=== PATIENT | female | born 1960 | race Two or more races ===

== ENCOUNTER → 2017-10-05 | Outpatient (CLI) | payer MEDICARE ==
[~2017-10-05] MED LIST: ASPI-191 PO; CEFD300C37 PO; CHOL100011 PO; CHOL10003 PO; FAMO20TA7 PO; FENO120T5 PO; FURO40SO5 PO; GEMF600T3 PO; HYDR25TA6 PO; INSU100I13 SQ-INSULIN; LISI40TA PO; MELO15TA24 PO; METF10002 PO; METF500T4 PO; METR500T PO; POTA99TA24 PO; RANI-276 PO; SAXA5TAB PO; TRAM50TA2 PO
== END | disposition home or self-care (01) ==
LOC: CFH 11:55
PROVIDERS: ATTEND Family Medicine
DX: Z12.31 Encounter for screening mammogram for malignant neoplasm of breast (principal)
CPT/HCPCS: 77067

== ENCOUNTER → 2017-10-26 | Outpatient (CLI) | payer MEDICARE | END | disposition home or self-care (01) | LOC: CFH 13:59 | PROVIDERS: ATTEND Physician Assistant Surgical | DX: N85.2 Hypertrophy of uterus (principal); D17.79 Benign lipomatous neoplasm of other sites; Z90.49 Acquired absence of other specified parts of digestive tract | CPT/HCPCS: 74176 ==

== ENCOUNTER 2018-07-19 18:40 | Inpatient (IN) | payer MEDICARE ==
[~2018-07-19] VITALS: Ht 157.5 cm; Wt 61.4 kg
[2018-07-19 19:47] VITALS: BP 122/71
[2018-07-19 19:55] VITALS: BP 122/71
[2018-07-19] MEDS ORDERED: PLEASE ENTER HEIGHT AND WEIGHT MC SCH (20:00)
[2018-07-19 20:42] LABS: MEAN CORPUSCULAR HEMOGLOBIN 29.6 pg (27.0-34.8); MEAN CORPUSCULAR HGB CONC 34.4 g/dL (32.4-35.8); MEAN CORPUSCULAR VOLUME 86.1 fL (80-100); MEAN PLATELET VOLUME 8.3 fL (7.4-10.4); PLATELET COUNT 123 x10^3/uL (130-400); RED BLOOD COUNT 2.87 x10^6/uL (3.82-5.3); RED CELL DISTRIBUTION WIDTH 15.2 % (9.6-15.2)
[2018-07-19 20:54] LABS: ALANINE AMINOTRANSFERASE 19 U/L (12-78); ALBUMIN 3.2 g/dL (3.4-5.0); ANION GAP 13 mmol/L (5-15); CALCIUM 8.4 mg/dL (8.5-10.1); CHLORIDE 103 mmol/L (98-107); CREATININE 1.84 mg/dL (0.55-1.02); MD YES
[2018-07-19 20:56] LABS: ALKALINE PHOSPHATASE 71 U/L (45-117); BILIRUBIN,TOTAL 0.9 mg/dL (0.2-1.0); TOTAL PROTEIN 6.2 g/dL (6.4-8.2)
[2018-07-19] MEDS ORDERED: SODIUM CHLORIDE 0.45% 1,000 ML IV SCH (21:00)
[2018-07-19 21:08] LABS: BAND#(MANUAL) 0.04 x10^3/uL; BANDS%(MANUAL) 2 % (0-7); BASOS#(MANUAL) 0.02 x10^3/uL (0-0.1); BASOS% (MANUAL) 1 % (0-1); EOS#(MANUAL) 0.11 x10^3/uL (0.0-0.4); EOS% (MANUAL) 5 % (1-7); LYMPH#(MANUAL) 0.86 x10^3/uL (1-3.4); LYMPHS% (MANUAL) 41 % (22-44); MONOS#(MANUAL) 0.19 x10^3/uL (0.3-2.7); MONOS% (MANUAL) 9 % (2-9); REACTIVE LYMPHS # (MANUAL) 0.02 x10^3/uL (0-0); REACTIVE LYMPHS % (MANUAL) 1 % (0-0); SEG#(MANUAL) 0.86 x10^3/uL (1.8-6.8); SEGS% (MANUAL) 41 % (42-75)
[2018-07-19 21:13] LABS: ANISOCYTOSIS 1+; OVALOCYTES 1+
[2018-07-19 21:14] LABS: POLYCHROMASIA 1+
[2018-07-19 21:16] LABS: <PLT MORPHOLOGY> NORMAL PLT MORPH
[2018-07-19 21:17] LABS: <PLATELET ESTIMATE> ADEQUATE
[2018-07-19] MEDS: OXYcodone/APAP 5/325MG TABLET PO PRN (21:59)
[2018-07-19] MEDS: MIRTAZAPINE 15 MG TABLET PO SCH (22:55)
[2018-07-19] MEDS: OXYBUTYNIN CHLORIDE 5 MG TABLET PO SCH (22:55)
[2018-07-19] MEDS: CEFEPIME 1 GM in DEXTROSE 5% 50 ML IV SCH (22:55)
[2018-07-19] MEDS: ATORVASTATIN 40 MG TABLET PO SCH (22:55)
[2018-07-19] MEDS ORDERED: ONDANSETRON 4 MG TABLET PO PRN (23:00)
[2018-07-19 23:39] LABS: CULTURE INDICATED? YES; MICROSCOPIC INDICATED
[2018-07-19] MEDS: METRONIDAZOLE PMX 500MG/100ML 100 ML IV SCH (23:52)
[2018-07-20 01:04] VITALS: BP 107/66
[2018-07-20] MEDS: METRONIDAZOLE PMX 500MG/100ML 100 ML IV SCH ×3 (05:42→20:08)
[2018-07-20 07:32] VITALS: BP 109/72
[2018-07-20] MEDS: INSULIN GLARGINE 100 UNITS/ML, PEN SQ-INSULIN SCH ×2 (09:00→12:47)
[2018-07-20] MEDS: ASPIRIN 81 MG TABLET EC PO SCH (09:00)
[2018-07-20] MEDS: GLIPizide ER 2.5 MG TABLET PO SCH (10:43)
[2018-07-20] MEDS: ASCORBIC ACID 500 MG TABLET PO SCH (10:43)
[2018-07-20] MEDS: ALLOPURINOL 100 MG TABLET PO SCH (10:43)
[2018-07-20] MEDS: CHOLECALCIFEROL 1,000 UNIT TABLET PO SCH (10:43)
[2018-07-20] MEDS: TBO-FILGRASTIM 300 MCG/0.5 ML SQ SCH (10:44)
[2018-07-20] MEDS: OXYBUTYNIN CHLORIDE 5 MG TABLET PO SCH ×2 (10:44→20:08)
[2018-07-20] MEDS: FERROUS SULFATE 325 MG TABLET PO SCH (10:44)
[2018-07-20] MEDS: ONDANSETRON 2MG/ML, 2ML IVPush PRN (13:00)
[2018-07-20] MEDS: OXYcodone/APAP 5/325MG TABLET PO PRN ×2 (13:00→20:12)
[2018-07-20] MEDS: DIPHENHYDRAMINE 50 MG/ML, 1ML IVPush PRN (13:00)
[2018-07-20 13:39] VITALS: BP 123/73
[2018-07-20] MEDS: ACETAMINOPHEN 325 MG TABLET PO PRN (14:16)
[2018-07-20] MEDS: POTASSIUM CHLORIDE 20 MEQ in SODIUM CHLORIDE 0.45% 1,000 ML IV SCH (14:16)
[2018-07-20 19:28] VITALS: BP 113/69
[2018-07-20] MEDS: ATORVASTATIN 40 MG TABLET PO SCH (20:08)
[2018-07-20] MEDS: MIRTAZAPINE 15 MG TABLET PO SCH (20:08)
[2018-07-20] MEDS: CEFEPIME 1 GM in DEXTROSE 5% 50 ML IV SCH (23:09)
[2018-07-21 01:46] VITALS: BP 106/62
[2018-07-21] MEDS: METRONIDAZOLE PMX 500MG/100ML 100 ML IV SCH ×4 (02:15→23:14)
[2018-07-21] MEDS: POTASSIUM CHLORIDE 20 MEQ in SODIUM CHLORIDE 0.45% 1,000 ML IV SCH ×3 (02:28→16:41)
[2018-07-21] MEDS: DIPHENHYDRAMINE 50 MG/ML, 1ML IVPush PRN ×2 (06:16→23:32)
[2018-07-21 07:36] VITALS: BP 115/70
[2018-07-21] MEDS: ASPIRIN 81 MG TABLET EC PO SCH (08:24)
[2018-07-21] MEDS: ALLOPURINOL 100 MG TABLET PO SCH (08:33)
[2018-07-21] MEDS: CHOLECALCIFEROL 1,000 UNIT TABLET PO SCH (08:33)
[2018-07-21] MEDS: OXYBUTYNIN CHLORIDE 5 MG TABLET PO SCH ×2 (08:33→20:31)
[2018-07-21] MEDS: OXYcodone/APAP 5/325MG TABLET PO PRN ×2 (08:33→16:41)
[2018-07-21] MEDS: FERROUS SULFATE 325 MG TABLET PO SCH (08:33)
[2018-07-21] MEDS: GLIPizide ER 2.5 MG TABLET PO SCH (08:33)
[2018-07-21] MEDS: ASCORBIC ACID 500 MG TABLET PO SCH (08:34)
[2018-07-21] MEDS: ONDANSETRON 2MG/ML, 2ML IVPush PRN (08:46)
[2018-07-21] MEDS: INSULIN GLARGINE 100 UNITS/ML, PEN SQ-INSULIN SCH (08:54)
[2018-07-21 09:43] LABS: BASOPHILS # (AUTO) 0.03 x10^3/uL (0-0.1); BASOPHILS % (AUTO) 0 % (0-1); EOSINOPHILS # (AUTO) 0.24 x10^3/uL (0-0.4); EOSINOPHILS % (AUTO) 2 % (1-7); LYMPHOCYTES # (AUTO) 0.98 x10^3/uL (1-3.4); LYMPHOCYTES % (AUTO) 10 % (22-44); MD NO; MEAN CORPUSCULAR HEMOGLOBIN 28.6 pg (27.0-34.8); MEAN CORPUSCULAR HGB CONC 32.8 g/dL (32.4-35.8); MEAN CORPUSCULAR VOLUME 87.3 fL (80-100); MEAN PLATELET VOLUME 8.3 fL (7.4-10.4); MONOCYTES # (AUTO) 0.33 x10^3/uL (0.2-0.8); MONOCYTES % (AUTO) 3 % (2-9); NEUTROPHILS % (AUTO) 85 % (42-75); PLATELET COUNT 113 x10^3/uL (130-400); RED BLOOD COUNT 2.72 x10^6/uL (3.82-5.3); RED CELL DISTRIBUTION WIDTH 15.2 % (9.6-15.2)
[2018-07-21 09:59] LABS: ALBUMIN 2.8 g/dL (3.4-5.0); ANION GAP 7 mmol/L (5-15); CALCIUM 8.2 mg/dL (8.5-10.1); CHLORIDE 109 mmol/L (98-107)
[2018-07-21] MEDS: TBO-FILGRASTIM 300 MCG/0.5 ML SQ SCH (09:59)
[2018-07-21 10:03] LABS: ALANINE AMINOTRANSFERASE 14 U/L (12-78); ALKALINE PHOSPHATASE 63 U/L (45-117); BILIRUBIN,TOTAL 0.8 mg/dL (0.2-1.0); CREATININE 1.29 mg/dL (0.55-1.02); TOTAL PROTEIN 5.3 g/dL (6.4-8.2)
[2018-07-21 12:43] VITALS: BP 98/58
[2018-07-21 18:47] VITALS: BP 95/56
[2018-07-21] MEDS: MIRTAZAPINE 15 MG TABLET PO SCH (20:31)
[2018-07-21] MEDS: ATORVASTATIN 40 MG TABLET PO SCH (20:31)
[2018-07-22] MEDS: CEFEPIME 1 GM in DEXTROSE 5% 50 ML IV SCH (00:37)
[2018-07-22] MEDS: POTASSIUM CHLORIDE 20 MEQ in SODIUM CHLORIDE 0.45% 1,000 ML IV SCH ×2 (02:11→09:33)
[2018-07-22 03:01] VITALS: BP 111/57
[2018-07-22] MEDS: METRONIDAZOLE PMX 500MG/100ML 100 ML IV SCH (05:04)
[2018-07-22 07:43] VITALS: BP 99/58
[2018-07-22] MEDS: GLIPizide ER 2.5 MG TABLET PO SCH (08:14)
[2018-07-22] MEDS: OXYBUTYNIN CHLORIDE 5 MG TABLET PO SCH ×2 (08:14→19:49)
[2018-07-22] MEDS: ASCORBIC ACID 500 MG TABLET PO SCH (08:14)
[2018-07-22] MEDS: ALLOPURINOL 100 MG TABLET PO SCH (08:14)
[2018-07-22] MEDS: CHOLECALCIFEROL 1,000 UNIT TABLET PO SCH (08:15)
[2018-07-22] MEDS: ASPIRIN 81 MG TABLET EC PO SCH (08:15)
[2018-07-22] MEDS: FERROUS SULFATE 325 MG TABLET PO SCH (08:15)
[2018-07-22] MEDS: INSULIN GLARGINE 100 UNITS/ML, PEN SQ-INSULIN SCH (09:00)
[2018-07-22 10:13] LABS: MEAN CORPUSCULAR HEMOGLOBIN 29.3 pg (27.0-34.8); MEAN CORPUSCULAR HGB CONC 33.8 g/dL (32.4-35.8); MEAN CORPUSCULAR VOLUME 86.9 fL (80-100); MEAN PLATELET VOLUME 8.4 fL (7.4-10.4); PLATELET COUNT 114 x10^3/uL (130-400); RED BLOOD COUNT 2.61 x10^6/uL (3.82-5.3); RED CELL DISTRIBUTION WIDTH 15.3 % (9.6-15.2)
[2018-07-22 10:21] LABS: BASOPHILS # (AUTO) 0.03 x10^3/uL (0-0.1); BASOPHILS % (AUTO) 0 % (0-1); EOSINOPHILS # (AUTO) 0.48 x10^3/uL (0-0.4); EOSINOPHILS % (AUTO) 6 % (1-7); LYMPHOCYTES # (AUTO) 1.19 x10^3/uL (1-3.4); LYMPHOCYTES % (AUTO) 14 % (22-44); MD SCAN; MONOCYTES # (AUTO) 0.26 x10^3/uL (0.2-0.8); MONOCYTES % (AUTO) 3 % (2-9); NEUTROPHILS # (AUTO) 6.59 x10^3/uL (1.8-6.8); NEUTROPHILS % (AUTO) 77 % (42-75)
[2018-07-22 10:39] LABS: ANION GAP 10 mmol/L (5-15); CHLORIDE 111 mmol/L (98-107)
[2018-07-22 10:44] LABS: CALCIUM 7.9 mg/dL (8.5-10.1); CREATININE 0.96 mg/dL (0.55-1.02)
[2018-07-22] MEDS: ONDANSETRON 2MG/ML, 2ML IVPush PRN (11:40)
[2018-07-22 14:04] VITALS: BP 100/61
[2018-07-22] MEDS: ATORVASTATIN 40 MG TABLET PO SCH (19:48)
[2018-07-22] MEDS: CIPROFLOXACIN/PMX 400MG/200ML 200 ML IV SCH (19:49)
[2018-07-22] MEDS: MIRTAZAPINE 15 MG TABLET PO SCH (19:49)
[2018-07-22 20:00] VITALS: BP 102/63
[2018-07-22] MEDS: ACETAMINOPHEN 325 MG TABLET PO PRN (21:16)
[2018-07-23 00:57] VITALS: BP 105/59
[2018-07-23] MEDS: POTASSIUM CHLORIDE 20 MEQ in SODIUM CHLORIDE 0.45% 1,000 ML IV SCH ×2 (03:00→05:45)
[2018-07-23 05:24] LABS: MEAN CORPUSCULAR HEMOGLOBIN 29.7 pg (27.0-34.8); MEAN CORPUSCULAR VOLUME 87.3 fL (80-100); MEAN PLATELET VOLUME 7.9 fL (7.4-10.4); PLATELET COUNT 110 x10^3/uL (130-400); RED BLOOD COUNT 2.37 x10^6/uL (3.82-5.3)
[2018-07-23 05:28] LABS: CHLORIDE 115 mmol/L (98-107)
[2018-07-23 05:45] LABS: ANION GAP 8 mmol/L (5-15); CALCIUM 7.6 mg/dL (8.5-10.1); CREATININE 0.79 mg/dL (0.55-1.02)
[2018-07-23 05:58] LABS: BASOPHILS # (AUTO) 0.02 x10^3/uL (0-0.1); BASOPHILS % (AUTO) 0 % (0-1); EOSINOPHILS % (AUTO) 7 % (1-7); LYMPHOCYTES # (AUTO) 1.35 x10^3/uL (1-3.4); LYMPHOCYTES % (AUTO) 23 % (22-44); MD SCAN; MONOCYTES # (AUTO) 0.32 x10^3/uL (0.2-0.8); MONOCYTES % (AUTO) 6 % (2-9); NEUTROPHILS # (AUTO) 3.73 x10^3/uL (1.8-6.8); NEUTROPHILS % (AUTO) 64 % (42-75)
[2018-07-23] MEDS: FERROUS SULFATE 325 MG TABLET PO SCH (07:57)
[2018-07-23] MEDS: ASCORBIC ACID 500 MG TABLET PO SCH (07:57)
[2018-07-23] MEDS: OXYBUTYNIN CHLORIDE 5 MG TABLET PO SCH (07:57)
[2018-07-23] MEDS: ALLOPURINOL 100 MG TABLET PO SCH (07:57)
[2018-07-23] MEDS: GLIPizide ER 2.5 MG TABLET PO SCH (07:57)
[2018-07-23] MEDS: ASPIRIN 81 MG TABLET EC PO SCH (07:57)
[2018-07-23] MEDS: INSULIN GLARGINE 100 UNITS/ML, PEN SQ-INSULIN SCH (07:58)
[2018-07-23] MEDS: CHOLECALCIFEROL 1,000 UNIT TABLET PO SCH (07:58)
[2018-07-23] MEDS: CIPROFLOXACIN/PMX 400MG/200ML 200 ML IV SCH (08:02)
[2018-07-23 08:29] VITALS: BP 108/66
[2018-07-23] MEDS ORDERED: CIPR250T27 PO (10:32)
[2018-07-23] MEDS: ONDANSETRON 2MG/ML, 2ML IVPush PRN (10:42)
[2018-07-23 13:00] VITALS: BP 109/66
== END 2018-07-23 14:13 | disposition home or self-care (01) | DRG 871 ==
LOC: INTOOBSV 19:02 → OBSVTOIN 19:02 → 3NW 19:02
PROVIDERS: ADMIT Specialist; ATTEND Specialist
DX: A41.50 Gram-negative sepsis, unspecified (principal); E43 Unspecified severe protein-calorie malnutrition; N13.6 Pyonephrosis; C54.1 Malignant neoplasm of endometrium; D64.9 Anemia, unspecified; D70.3 Neutropenia due to infection; D64.81 Anemia due to antineoplastic chemotherapy; D75.89 Other specified diseases of blood and blood-forming organs; E11.22 Type 2 diabetes mellitus with diabetic chronic kidney disease; E11.649 Type 2 diabetes mellitus with hypoglycemia without coma; E78.5 Hyperlipidemia, unspecified; I12.9 Hypertensive chronic kidney disease with stage 1 through stage 4 chronic kidney disease, or unspecified chronic kidney disease; K21.9 Gastro-esophageal reflux disease without esophagitis; N18.9 Chronic kidney disease, unspecified; N85.2 Hypertrophy of uterus; T45.1X5A Adverse effect of antineoplastic and immunosuppressive drugs, initial encounter; Y92.89 Other specified places as the place of occurrence of the external cause; M19.90 Unspecified osteoarthritis, unspecified site; Z88.8 Allergy status to other drugs, medicaments and biological substances; Z82.49 Family history of ischemic heart disease and other diseases of the circulatory system; Z83.3 Family history of diabetes mellitus; Z68.24 Body mass index [BMI] 24.0-24.9, adult
CPT/HCPCS: 36415; 71045; 80048; 80053; 81001; 82962; 85025; 87040; 87077; 87086; 87186; G0378; J0692; J0744; J2405; J3480; J1200; J1447

== ENCOUNTER → 2018-07-19 | Day surgery (SDC) | payer MEDICARE ==
[~2018-07-19] VITALS: Ht 157.5 cm; Wt 59.3 kg
[~2018-07-19] MED LIST changes: +ALLO100T30 PO; +ATOR40TA78 PO; +CHOL2000 PO; +DEXAMETHASONE PO; +FERR325T5 PO; +FURO20TA3 PO; -GEMF600T3 PO; +GEMF600T4 PO; +GLIP2.5T3 PO; +GLIP5TAB10 PO; +INSU100V8 SQ; -METF10002 PO; +METF10007 PO; +METF500T17 PO; -METF500T4 PO; +MIRT15TA4 PO; +ONDA4TAB7 PO; +OXYB5TAB7 PO; +OXYC1TAB7 PO; +POTA10CA PO; -RANI-276 PO; +RANI-448 PO; +RANI300T PO; +vitamin c
[2018-07-19 12:15] VITALS: BP 111/71
== END | disposition home or self-care (01) ==
LOC: OUT 11:18 → EDSTATUS 13:00
PROVIDERS: ATTEND Urology
DX: Z02.9 Encounter for administrative examinations, unspecified (principal)

== ENCOUNTER 2018-08-24 06:37 | Day surgery (SDC) | payer MEDICARE ==
[~2018-08-24] VITALS: Ht 157.5 cm; Wt 57.4 kg
[~2018-08-24 06:37] MED LIST changes: +CIPR250T27 PO; -GEMF600T4 PO; +GEMF600T8 PO
[2018-08-24] MEDS ORDERED: SODIUM CHLORIDE 0.9% 1,000 ML IV SCH (07:20)
[2018-08-24 07:55] VITALS: BP 122/82
[2018-08-24] MEDS ORDERED: FENTANYL PF 100 MCG/2ML ONE (07:59)
[2018-08-24] MEDS ORDERED: MIDAZOLAM 1 MG/ML, 5ML ONE (07:59)
[2018-08-24] MEDS ORDERED: LIDOCAINE-MPF 1%, 5ML ONE (08:28)
== END 2018-08-24 10:45 | disposition home or self-care (01) ==
LOC: OUT 06:37
PROVIDERS: ATTEND Urology
DX: N13.30 Unspecified hydronephrosis (principal); C54.1 Malignant neoplasm of endometrium; I12.9 Hypertensive chronic kidney disease with stage 1 through stage 4 chronic kidney disease, or unspecified chronic kidney disease; E11.22 Type 2 diabetes mellitus with diabetic chronic kidney disease; N18.9 Chronic kidney disease, unspecified; Z79.82 Long term (current) use of aspirin; Z87.891 Personal history of nicotine dependence; Z98.890 Other specified postprocedural states; Z79.84 Long term (current) use of oral hypoglycemic drugs
CPT/HCPCS: 50693; 99156; 99157; C2625; J2250; J3010; J7030; 50695

== ENCOUNTER 2018-11-03 10:29 | Outpatient (CLI) | payer MEDICARE | END 2018-11-03 23:59 | disposition home or self-care (01) | LOC: WOUND 10:29 | PROVIDERS: ATTEND Family Medicine | DX: Z43.3 Encounter for attention to colostomy (principal) | CPT/HCPCS: G0463 ==

== ENCOUNTER → 2018-11-22 | Outpatient (CLI) | payer MEDICARE ==
[~2018-11-22] MED LIST changes: +OMNIPAQUE 350 MG/ML, 100ML BOTTLE ONE
== END | disposition home or self-care (01) ==
LOC: CFH 13:13
PROVIDERS: ATTEND Specialist
DX: Z51.11 Encounter for antineoplastic chemotherapy (principal); C54.1 Malignant neoplasm of endometrium; C78.89 Secondary malignant neoplasm of other digestive organs; J98.4 Other disorders of lung; N13.39 Other hydronephrosis
CPT/HCPCS: 71260; 74177; 82565; Q9967

== ENCOUNTER 2018-11-29 10:23 | Outpatient (CLI) | payer MEDICARE ==
[~2018-11-29 10:23] MED LIST changes: -OMNIPAQUE 350 MG/ML, 100ML BOTTLE ONE
[2018-12-13] MEDS ORDERED: PROC10TA2 PO (15:20)
[2018-12-13] MEDS ORDERED: [UNRECOGNIZED DRUG - OTHER] (15:20)
[2018-12-13] MEDS ORDERED: MAGN400T7 PO (15:20)
[2018-12-13] MEDS ORDERED: OXYC-306 PO (15:20)
== END 2018-11-29 23:59 | disposition home or self-care (01) ==
LOC: WOUND 10:23
PROVIDERS: ATTEND Internal Medicine
DX: Z93.2 Ileostomy status (principal); I12.9 Hypertensive chronic kidney disease with stage 1 through stage 4 chronic kidney disease, or unspecified chronic kidney disease; E11.22 Type 2 diabetes mellitus with diabetic chronic kidney disease; N18.9 Chronic kidney disease, unspecified; G89.29 Other chronic pain; E78.00 Pure hypercholesterolemia, unspecified; E78.5 Hyperlipidemia, unspecified; M19.90 Unspecified osteoarthritis, unspecified site; K21.9 Gastro-esophageal reflux disease without esophagitis; Z87.891 Personal history of nicotine dependence; Z96.653 Presence of artificial knee joint, bilateral; Z79.82 Long term (current) use of aspirin; Z79.4 Long term (current) use of insulin; Z79.84 Long term (current) use of oral hypoglycemic drugs
CPT/HCPCS: G0463

== ENCOUNTER 2018-12-13 15:35 | Inpatient (IN) | payer MEDICARE ==
[~2018-12-13] VITALS: Ht 157.5 cm; Wt 72.9 kg
[2018-12-20] MEDS ORDERED: LACTATED RINGERS 1,000 ML IV SCH (06:12)
[2018-12-20 06:18] VITALS: BP 114/73
[2018-12-20] MEDS ORDERED: GABAPENTIN 300 MG CAPSULE PO ONE (06:30)
[2018-12-20] MEDS ORDERED: SCOPOLAMINE PATCH, 1.5MG PATCH.TD72 TD ONE (06:30)
[2018-12-20] MEDS ORDERED: OxyconTIN ER 20 MG TAB.ER PO ONE (06:30)
[2018-12-20] MEDS ORDERED: ACETAMINOPHEN 500 MG TABLET PO ONE (06:30)
[2018-12-20] MEDS ORDERED: FENTANYL PF 250 MCG/5ML ONE (07:31)
[2018-12-20] MEDS ORDERED: MIDAZOLAM 1 MG/ML, 2ML ONE (07:31)
[2018-12-20] MEDS ORDERED: ALBUMIN HUMAN 5% 500 ML ONE ×2 (07:37→09:38)
[2018-12-20] MEDS ORDERED: SILVER SULF. CRM 1% , 25GM ONE (09:10)
[2018-12-20] MEDS ORDERED: PROMETHAZINE 25 MG/ML, 1ML IV PRN (09:30)
[2018-12-20] MEDS ORDERED: METOPROLOL 1 MG/ML, 5ML IV PRN (09:30)
[2018-12-20] MEDS ORDERED: MIDAZOLAM 1 MG/ML, 2ML IV PRN (09:30)
[2018-12-20] MEDS ORDERED: ONDANSETRON 2MG/ML, 2ML IV PRN ×2 (09:30→16:00)
[2018-12-20] MEDS ORDERED: ALBUTEROL/IPRATROPIUM 2.5MG/0.5MG, 3 ML NPPB PRN (09:30)
[2018-12-20] MEDS ORDERED: hydrALAzine 20 MG/ML, 1ML IV PRN (09:30)
[2018-12-20] MEDS ORDERED: GLYCOPYRROLATE 0.2MG/1ML, 5ML ONE (09:49)
[2018-12-20] MEDS ORDERED: PROPOFOL 10 MG/ML, 20ML ONE (09:49)
[2018-12-20] MEDS ORDERED: CEFAZOLIN 1,000 MG ONE (09:49)
[2018-12-20] MEDS ORDERED: ONDANSETRON 2MG/ML, 2ML ONE (09:49)
[2018-12-20] MEDS ORDERED: BUPIVACAINE/PF 0.25% ONE (09:49)
[2018-12-20] MEDS ORDERED: DEXAMETHASONE 4 MG/ML, 1ML ONE (09:49)
[2018-12-20] MEDS ORDERED: NEOSTIGMINE 1 MG/ML, 10ML ONE (09:49)
[2018-12-20] MEDS ORDERED: ROCURONIUM 10MG/ML,5ML ONE (09:49)
[2018-12-20] MEDS ORDERED: THROMBIN 5,000 UNIT VIAL TP ONE (10:51)
[2018-12-20] MEDS ORDERED: THROMBIN 20,000 UNIT VIAL TP ONE (10:53)
[2018-12-20] MEDS ORDERED: HYDROmorphone 2 MG/ML, 1ML ONE (12:44)
[2018-12-20] MEDS ORDERED: FENTANYL PF 100 MCG/2ML ONE (12:44)
[2018-12-20] MEDS: FENTANYL PF 100 MCG/2ML IV PRN ×3 (12:47→13:28)
[2018-12-20] MEDS: HYDROmorphone 2 MG/ML, 1ML IVPush PRN ×3 (12:48→13:52)
[2018-12-20] MEDS ORDERED: LIDOCAINE 2%, 6 ML JEL.PF.APP MM ONE (12:55)
[2018-12-20] MEDS ORDERED: HYDROMORPHONE HCL EPIDCONT SCH (13:00)
[2018-12-20] MEDS ORDERED: [UNRECOGNIZED DRUG - OTHER] EPIDCONT SCH (13:00)
[2018-12-20] MEDS ORDERED: BUPIVACAINE EPIDCONT SCH (13:00)
[2018-12-20 13:23] LABS: ALANINE AMINOTRANSFERASE 13 U/L (12-78); ALBUMIN 2.2 g/dL (3.4-5.0); ANION GAP 10 mmol/L (5-15); CALCIUM 8.4 mg/dL (8.5-10.1); CHLORIDE 114 mmol/L (98-107); CREATININE 1.33 mg/dL (0.55-1.02)
[2018-12-20 13:25] LABS: ALKALINE PHOSPHATASE 31 U/L (45-117); BILIRUBIN,TOTAL 0.6 mg/dL (0.2-1.0); TOTAL PROTEIN 3.6 g/dL (6.4-8.2)
[2018-12-20 14:10] LABS: MD YES; MEAN CORPUSCULAR HEMOGLOBIN 32.1 pg (27.0-34.8); MEAN CORPUSCULAR HGB CONC 33.4 g/dL (32.4-35.8); MEAN CORPUSCULAR VOLUME 96.2 fL (80-100); PLATELET COUNT 89 x10^3/uL (130-400); RED BLOOD COUNT 2.47 x10^6/uL (3.82-5.3)
[2018-12-20 14:11] LABS: INTERNATIONAL NORMALIZED RATIO 1.05 (0.93-1.1)
[2018-12-20 14:13] LABS: ANISOCYTOSIS 1+; BAND#(MANUAL) 0.51 x10^3/uL; BANDS%(MANUAL) 7 % (0-7); LYMPH#(MANUAL) 1.68 x10^3/uL (1-3.4); LYMPHS% (MANUAL) 23 % (22-44); MONOS#(MANUAL) 0.15 x10^3/uL (0.3-2.7); MONOS% (MANUAL) 2 % (2-9); SEG#(MANUAL) 4.96 x10^3/uL (1.8-6.8); SEGS% (MANUAL) 68 % (42-75)
[2018-12-20 14:14] LABS: <PLATELET ESTIMATE> DECREASED; <PLT MORPHOLOGY> NORMAL PLT MORPH; CRENATED 1+; POLYCHROMASIA 1+
[2018-12-20] MEDS ORDERED: CALCIUM CHLORIDE 10%, 10ML SYR ONE (15:58)
[2018-12-20] MEDS ORDERED: PHENYLEPHRINE 10 MG/ML ONE (15:58)
[2018-12-20] MEDS ORDERED: NALOXONE 0.4 MG/ML, 1ML IV PRN (16:00)
[2018-12-20] MEDS ORDERED: DO NOT GIVE XX SCH (16:00)
[2018-12-20] MEDS ORDERED: FENTANYL PF 100 MCG/2ML IVPush PRN (16:00)
[2018-12-20] MEDS ORDERED: EPHEDRINE 50 MG/ML, 1ML IVPush PRN (16:00)
[2018-12-20] MEDS ORDERED: DO NOT GIVE MC SCH (16:00)
[2018-12-20] MEDS ORDERED: HYDROmorphone 2 MG/ML, 1ML IVPush PRN (16:00)
[2018-12-20] MEDS ORDERED: SODIUM CHLORIDE 0.9% 1,000ML IVBOLUS ONE (16:30)
[2018-12-20] MEDS: POTASSIUM CHLORIDE 20 MEQ in D5%-0.45% NACL 1,000 ML IV SCH (17:55)
[2018-12-20 20:20] VITALS: BP 104/61
[2018-12-20] MEDS: FAMOTIDINE 20 MG/2 ML IV SCH (20:48)
[2018-12-20 20:53] LABS: BASOPHILS % (AUTO) 0 % (0-1); EOSINOPHILS % (AUTO) 0 % (1-7); LYMPHOCYTES # (AUTO) 0.58 x10^3/uL (1-3.4); LYMPHOCYTES % (AUTO) 7 % (22-44); MD SCAN; MEAN CORPUSCULAR HEMOGLOBIN 31.9 pg (27.0-34.8); MEAN CORPUSCULAR HGB CONC 32.7 g/dL (32.4-35.8); MEAN CORPUSCULAR VOLUME 97.6 fL (80-100); MONOCYTES % (AUTO) 5 % (2-9); NEUTROPHILS # (AUTO) 6.76 x10^3/uL (1.8-6.8); NEUTROPHILS % (AUTO) 87 % (42-75); PLATELET COUNT 92 x10^3/uL (130-400); RED CELL DISTRIBUTION WIDTH 15.8 % (9.6-15.2)
[2018-12-21] MEDS: POTASSIUM CHLORIDE 20 MEQ in D5%-0.45% NACL 1,000 ML IV SCH ×2 (00:41→08:11)
[2018-12-21] MEDS ORDERED: SODIUM CHLORIDE 0.9%, 500ML IVBOLUS ONE ×2 (02:00→07:30)
[2018-12-21 02:58] VITALS: BP 90/53
[2018-12-21 05:04] LABS: ALBUMIN 2.3 g/dL (3.4-5.0); ANION GAP 7 mmol/L (5-15); CALCIUM 7.4 mg/dL (8.5-10.1); CHLORIDE 114 mmol/L (98-107); CREATININE 1.96 mg/dL (0.55-1.02)
[2018-12-21 05:06] LABS: MEAN CORPUSCULAR HEMOGLOBIN 32.7 pg (27.0-34.8); MEAN CORPUSCULAR HGB CONC 33.1 g/dL (32.4-35.8); MEAN CORPUSCULAR VOLUME 98.8 fL (80-100); MEAN PLATELET VOLUME 7.4 fL (7.4-10.4); PLATELET COUNT 79 x10^3/uL (130-400); RED BLOOD COUNT 2.47 x10^6/uL (3.82-5.3); RED CELL DISTRIBUTION WIDTH 16.1 % (9.6-15.2)
[2018-12-21 05:45] LABS: MD YES
[2018-12-21 05:48] LABS: BAND#(MANUAL) 0.96 x10^3/uL; BANDS%(MANUAL) 9 % (0-7); LYMPH#(MANUAL) 1.28 x10^3/uL (1-3.4); LYMPHS% (MANUAL) 12 % (22-44); MONOS#(MANUAL) 0.43 x10^3/uL (0.3-2.7); MONOS% (MANUAL) 4 % (2-9); SEG#(MANUAL) 8.03 x10^3/uL (1.8-6.8); SEGS% (MANUAL) 75 % (42-75)
[2018-12-21 05:49] LABS: <PLATELET ESTIMATE> DECREASED; <PLT MORPHOLOGY> NORMAL PLT MORPH; ANISOCYTOSIS 1+; POLYCHROMASIA 1+
[2018-12-21 07:27] VITALS: BP 99/62
[2018-12-21] MEDS: FAMOTIDINE 20 MG/2 ML IV SCH ×2 (08:11→20:32)
[2018-12-21 13:20] VITALS: BP 113/56
[2018-12-21 14:12] LABS: CULTURE INDICATED? YES; MICROSCOPIC INDICATED
[2018-12-21] MEDS: SODIUM CHLORIDE 0.9% 1,000 ML IV SCH ×2 (15:26→23:05)
[2018-12-21] MEDS: BUPIVACAINE EPIDCONT SCH (15:26)
[2018-12-21] MEDS: [UNRECOGNIZED DRUG - OTHER] EPIDCONT SCH (15:26)
[2018-12-21] MEDS: HYDROMORPHONE HCL EPIDCONT SCH (15:26)
[2018-12-21] MEDS: CIPROFLOXACIN/PMX 400MG/200ML 200 ML IV SCH (17:03)
[2018-12-21 17:04] VITALS: BP 103/62
[2018-12-21 18:46] VITALS: BP 112/52
[2018-12-21] MEDS ORDERED: CIPROFLOXACIN/DEXTROSE 200 MG/100 ML PREMIX IVPB SCH (21:00)
[2018-12-22 01:23] VITALS: BP 118/64
[2018-12-22 04:40] LABS: MEAN CORPUSCULAR HEMOGLOBIN 32.8 pg (27.0-34.8); MEAN CORPUSCULAR HGB CONC 33.1 g/dL (32.4-35.8); MEAN CORPUSCULAR VOLUME 98.8 fL (80-100); MEAN PLATELET VOLUME 7.7 fL (7.4-10.4); PLATELET COUNT 82 x10^3/uL (130-400); RED BLOOD COUNT 2.51 x10^6/uL (3.82-5.3); RED CELL DISTRIBUTION WIDTH 15.9 % (9.6-15.2)
[2018-12-22] MEDS: SODIUM CHLORIDE 0.9% 1,000 ML IV SCH (05:35)
[2018-12-22] MEDS: CIPROFLOXACIN/PMX 400MG/200ML 200 ML IV SCH ×2 (05:35→16:19)
[2018-12-22 05:40] LABS: BASOPHILS # (AUTO) 0.01 x10^3/uL (0-0.1); BASOPHILS % (AUTO) 0 % (0-1); EOSINOPHILS # (AUTO) 0.07 x10^3/uL (0-0.4); EOSINOPHILS % (AUTO) 1 % (1-7); LYMPHOCYTES # (AUTO) 1.86 x10^3/uL (1-3.4); LYMPHOCYTES % (AUTO) 17 % (22-44); MD SCAN; MONOCYTES # (AUTO) 0.59 x10^3/uL (0.2-0.8); MONOCYTES % (AUTO) 5 % (2-9); NEUTROPHILS # (AUTO) 8.49 x10^3/uL (1.8-6.8); NEUTROPHILS % (AUTO) 77 % (42-75)
[2018-12-22 06:33] VITALS: BP 123/71
[2018-12-22 08:14] LABS: ALANINE AMINOTRANSFERASE 15 U/L (12-78); ALBUMIN 2.3 g/dL (3.4-5.0); ANION GAP 7 mmol/L (5-15); CALCIUM 7.7 mg/dL (8.5-10.1); CHLORIDE 117 mmol/L (98-107)
[2018-12-22 08:17] LABS: ALKALINE PHOSPHATASE 49 U/L (45-117); TOTAL PROTEIN 4.8 g/dL (6.4-8.2)
[2018-12-22] MEDS: FAMOTIDINE 20 MG/2 ML IV SCH (08:49)
[2018-12-22 12:22] VITALS: BP 123/67
[2018-12-22] MEDS: DEXTROSE 5% 1,000 ML IV SCH ×2 (12:43→20:39)
[2018-12-22] MEDS: HYDROMORPHONE HCL EPIDCONT SCH (16:18)
[2018-12-22] MEDS: [UNRECOGNIZED DRUG - OTHER] EPIDCONT SCH (16:18)
[2018-12-22] MEDS: BUPIVACAINE EPIDCONT SCH (16:18)
[2018-12-22 20:07] VITALS: BP 131/64
[2018-12-23] VITALS (9 sets, daily range): BP systolic 122–156; BP diastolic 62–77
[2018-12-23] MEDS: CIPROFLOXACIN/PMX 400MG/200ML 200 ML IV SCH ×2 (04:33→17:02)
[2018-12-23] MEDS: DEXTROSE 5% 1,000 ML IV SCH (04:41)
[2018-12-23 08:30] LABS: MEAN CORPUSCULAR HEMOGLOBIN 31.4 pg (27.0-34.8); MEAN CORPUSCULAR HGB CONC 32.5 g/dL (32.4-35.8); MEAN CORPUSCULAR VOLUME 96.5 fL (80-100); PLATELET COUNT 90 x10^3/uL (130-400); RED BLOOD COUNT 2.21 x10^6/uL (3.82-5.3); RED CELL DISTRIBUTION WIDTH 14.9 % (9.6-15.2)
[2018-12-23 08:39] LABS: ALANINE AMINOTRANSFERASE 14 U/L (12-78); ALBUMIN 2.2 g/dL (3.4-5.0); ANION GAP 7 mmol/L (5-15); CALCIUM 7.8 mg/dL (8.5-10.1); CHLORIDE 110 mmol/L (98-107)
[2018-12-23 08:42] LABS: ALKALINE PHOSPHATASE 74 U/L (45-117); BILIRUBIN,TOTAL 1.5 mg/dL (0.2-1.0); CREATININE 1.06 mg/dL (0.55-1.02); TOTAL PROTEIN 4.8 g/dL (6.4-8.2)
[2018-12-23 09:04] LABS: BASOPHILS # (AUTO) 0.03 x10^3/uL (0-0.1); BASOPHILS % (AUTO) 0 % (0-1); EOSINOPHILS # (AUTO) 0.24 x10^3/uL (0-0.4); EOSINOPHILS % (AUTO) 2 % (1-7); LYMPHOCYTES # (AUTO) 1.46 x10^3/uL (1-3.4); LYMPHOCYTES % (AUTO) 15 % (22-44); MD SCAN; MONOCYTES # (AUTO) 0.49 x10^3/uL (0.2-0.8); MONOCYTES % (AUTO) 5 % (2-9); NEUTROPHILS # (AUTO) 7.76 x10^3/uL (1.8-6.8); NEUTROPHILS % (AUTO) 78 % (42-75)
[2018-12-23] MEDS: FAMOTIDINE 20 MG/2 ML IV SCH (09:28)
[2018-12-23] MEDS: D5%-0.45NACL+KCL 20MEQ 1,000 ML IV SCH ×2 (11:29→22:09)
[2018-12-23] MEDS: [UNRECOGNIZED DRUG - OTHER] EPIDCONT SCH (15:30)
[2018-12-23] MEDS: BUPIVACAINE EPIDCONT SCH (15:30)
[2018-12-23] MEDS: HYDROMORPHONE HCL EPIDCONT SCH (15:30)
[2018-12-23] MEDS ORDERED: BUPIVACAINE/PF 0.5% EPIDCONT SCH (17:30)
[2018-12-23] MEDS: DIPHENHYDRAMINE 50 MG/ML, 1ML IVPush PRN (17:47)
[2018-12-23] MEDS ORDERED: BUPIVACAINE/PF 0.5%, 30ML 62.5 ML in SODIUM CHLORIDE 0.9% 187.5 ML EPIDCONT SCH (17:49)
[2018-12-23] MEDS ORDERED: DEXTROSE 50%, 50ML SYRINGE IVPush PRN (21:00)
[2018-12-23] MEDS ORDERED: DEXTROSE 4 GM TAB.CHEW PO PRN (21:00)
[2018-12-23] MEDS ORDERED: GLUCAGON 1 MG IM PRN (21:00)
[2018-12-23] MEDS: INSULIN LISPRO 100 UNITS/ML, PEN SQ-INSULIN SCH (21:36)
[2018-12-23] MEDS: SODIUM CHLORIDE FLUSH 10ML SYR IVF SCH (22:09)
[2018-12-24 00:06] VITALS: BP 154/73
[2018-12-24 01:58] VITALS: BP 162/82
[2018-12-24] MEDS: CIPROFLOXACIN/PMX 400MG/200ML 200 ML IV SCH ×2 (04:28→16:45)
[2018-12-24 06:19] VITALS: BP 152/75
[2018-12-24] MEDS: INSULIN LISPRO 100 UNITS/ML, PEN SQ-INSULIN SCH ×4 (07:52→20:10)
[2018-12-24] MEDS ORDERED: BUPIVACAINE/PF 0.5%, 30ML 62.5 ML in SODIUM CHLORIDE 0.9% 187.5 ML EPIDCONT SCH (10:00)
[2018-12-24] MEDS: FLUCONAZOLE 200 MG/100 ML 100 ML IV SCH (10:08)
[2018-12-24] MEDS: SODIUM CHLORIDE FLUSH 10ML SYR IVF SCH ×2 (10:09→20:10)
[2018-12-24] MEDS: D5%-0.45NACL+KCL 20MEQ 1,000 ML IV SCH ×2 (10:10→20:10)
[2018-12-24] MEDS: FAMOTIDINE 20 MG/2 ML IV SCH (10:15)
[2018-12-24 10:16] LABS: BASOPHILS # (AUTO) 0.01 x10^3/uL (0-0.1); BASOPHILS % (AUTO) 0 % (0-1); EOSINOPHILS # (AUTO) 0.19 x10^3/uL (0-0.4); EOSINOPHILS % (AUTO) 3 % (1-7); LYMPHOCYTES # (AUTO) 1.08 x10^3/uL (1-3.4); LYMPHOCYTES % (AUTO) 14 % (22-44); MD NO; MEAN CORPUSCULAR HEMOGLOBIN 32.2 pg (27.0-34.8); MEAN CORPUSCULAR HGB CONC 33.3 g/dL (32.4-35.8); MEAN CORPUSCULAR VOLUME 96.6 fL (80-100); MEAN PLATELET VOLUME 7.5 fL (7.4-10.4); MONOCYTES # (AUTO) 0.44 x10^3/uL (0.2-0.8); MONOCYTES % (AUTO) 6 % (2-9); NEUTROPHILS # (AUTO) 5.82 x10^3/uL (1.8-6.8); NEUTROPHILS % (AUTO) 77 % (42-75); PLATELET COUNT 100 x10^3/uL (130-400); RED BLOOD COUNT 3.38 x10^6/uL (3.82-5.3); RED CELL DISTRIBUTION WIDTH 14.8 % (9.6-15.2)
[2018-12-24 10:25] LABS: ANION GAP 7 mmol/L (5-15); CALCIUM 7.8 mg/dL (8.5-10.1); CHLORIDE 112 mmol/L (98-107)
[2018-12-24 10:27] LABS: CREATININE 1.03 mg/dL (0.55-1.02)
[2018-12-24] MEDS: OXYcodone/APAP 5/325MG TABLET PO PRN ×3 (12:08→23:59)
[2018-12-24 12:23] VITALS: BP 146/67
[2018-12-24 19:03] VITALS: BP 147/80
[2018-12-25] MEDS: DIPHENHYDRAMINE 50 MG/ML, 1ML IVPush PRN (00:08)
[2018-12-25 02:16] VITALS: BP 139/72
[2018-12-25] MEDS: CIPROFLOXACIN/PMX 400MG/200ML 200 ML IV SCH ×2 (03:58→16:55)
[2018-12-25 04:31] LABS: ANION GAP 5 mmol/L (5-15); CALCIUM 7.5 mg/dL (8.5-10.1); CHLORIDE 115 mmol/L (98-107); CREATININE 0.94 mg/dL (0.55-1.02); MEAN CORPUSCULAR HEMOGLOBIN 32.2 pg (27.0-34.8); MEAN CORPUSCULAR HGB CONC 33.3 g/dL (32.4-35.8); MEAN CORPUSCULAR VOLUME 96.5 fL (80-100); RED BLOOD COUNT 2.98 x10^6/uL (3.82-5.3); RED CELL DISTRIBUTION WIDTH 15.2 % (9.6-15.2)
[2018-12-25 05:11] LABS: MEAN PLATELET VOLUME 7.4 fL (7.4-10.4); PLATELET COUNT 92 x10^3/uL (130-400)
[2018-12-25 05:12] LABS: BASOPHILS # (AUTO) 0.02 x10^3/uL (0-0.1); BASOPHILS % (AUTO) 0 % (0-1); EOSINOPHILS # (AUTO) 0.36 x10^3/uL (0-0.4); EOSINOPHILS % (AUTO) 5 % (1-7); LYMPHOCYTES # (AUTO) 1.97 x10^3/uL (1-3.4); LYMPHOCYTES % (AUTO) 30 % (22-44); MD SCAN; MONOCYTES # (AUTO) 0.43 x10^3/uL (0.2-0.8); MONOCYTES % (AUTO) 6 % (2-9); NEUTROPHILS % (AUTO) 59 % (42-75)
[2018-12-25] MEDS: OXYcodone/APAP 5/325MG TABLET PO PRN ×3 (05:55→19:50)
[2018-12-25] MEDS: INSULIN LISPRO 100 UNITS/ML, PEN SQ-INSULIN SCH ×4 (07:00→19:50)
[2018-12-25 08:30] VITALS: BP 147/74
[2018-12-25] MEDS: FLUCONAZOLE 200 MG/100 ML 100 ML IV SCH (09:31)
[2018-12-25] MEDS: SODIUM CHLORIDE FLUSH 10ML SYR IVF SCH ×2 (09:31→21:00)
[2018-12-25] MEDS: FAMOTIDINE 20 MG/2 ML IV SCH (09:32)
[2018-12-25 13:00] VITALS: BP 151/78
[2018-12-25] MEDS: D5%-0.45NACL+KCL 20MEQ 1,000 ML IV SCH ×2 (15:34→22:00)
[2018-12-25 18:49] VITALS: BP 153/76
[2018-12-26 01:37] VITALS: BP 138/70
[2018-12-26] MEDS: CIPROFLOXACIN/PMX 400MG/200ML 200 ML IV SCH ×2 (04:13→16:12)
[2018-12-26 05:47] LABS: MEAN CORPUSCULAR HEMOGLOBIN 32.1 pg (27.0-34.8); MEAN CORPUSCULAR HGB CONC 33.5 g/dL (32.4-35.8); MEAN CORPUSCULAR VOLUME 95.9 fL (80-100); MEAN PLATELET VOLUME 7.1 fL (7.4-10.4); PLATELET COUNT 94 x10^3/uL (130-400); RED BLOOD COUNT 2.99 x10^6/uL (3.82-5.3); RED CELL DISTRIBUTION WIDTH 14.9 % (9.6-15.2)
[2018-12-26 05:59] LABS: CHLORIDE 113 mmol/L (98-107)
[2018-12-26 06:08] LABS: BASOPHILS # (AUTO) 0.03 x10^3/uL (0-0.1); BASOPHILS % (AUTO) 0 % (0-1); EOSINOPHILS # (AUTO) 0.28 x10^3/uL (0-0.4); EOSINOPHILS % (AUTO) 3 % (1-7); LYMPHOCYTES # (AUTO) 1.39 x10^3/uL (1-3.4); LYMPHOCYTES % (AUTO) 16 % (22-44); MD SCAN; MONOCYTES # (AUTO) 0.43 x10^3/uL (0.2-0.8); MONOCYTES % (AUTO) 5 % (2-9); NEUTROPHILS # (AUTO) 6.33 x10^3/uL (1.8-6.8); NEUTROPHILS % (AUTO) 75 % (42-75)
[2018-12-26 06:11] LABS: ALANINE AMINOTRANSFERASE 15 U/L (12-78); ALBUMIN 2.2 g/dL (3.4-5.0); ALKALINE PHOSPHATASE 82 U/L (45-117); ANION GAP 7 mmol/L (5-15); BILIRUBIN,TOTAL 1.1 mg/dL (0.2-1.0); CALCIUM 7.3 mg/dL (8.5-10.1); CREATININE 0.92 mg/dL (0.55-1.02); TOTAL PROTEIN 4.9 g/dL (6.4-8.2)
[2018-12-26] MEDS: INSULIN LISPRO 100 UNITS/ML, PEN SQ-INSULIN SCH ×4 (07:00→20:44)
[2018-12-26 07:03] VITALS: BP 146/71
[2018-12-26] MEDS: FAMOTIDINE 20 MG/2 ML IV SCH (09:11)
[2018-12-26] MEDS: FLUCONAZOLE 200 MG/100 ML 100 ML IV SCH (09:11)
[2018-12-26] MEDS: SODIUM CHLORIDE FLUSH 10ML SYR IVF SCH ×2 (09:12→21:00)
[2018-12-26 12:54] VITALS: BP 134/70
[2018-12-26] MEDS: D5%-0.45NACL+KCL 20MEQ 1,000 ML IV SCH (15:10)
[2018-12-26] MEDS: OXYcodone/APAP 5/325MG TABLET PO PRN (18:11)
[2018-12-26 19:26] VITALS: BP 133/74
[2018-12-26] MEDS: maalox/diphenh/lido/sucralfate 5 ML PO PRN (20:45)
[2018-12-26] MEDS: FAMOTIDINE 20 MG TABLET PO SCH (20:45)
[2018-12-26] MEDS ORDERED: FAMOTIDINE 20 MG/2 ML IV SCH (21:00)
[2018-12-27 00:34] VITALS: BP 157/74
[2018-12-27] MEDS: D5%-0.45NACL+KCL 20MEQ 1,000 ML IV SCH ×2 (00:43→09:10)
[2018-12-27] MEDS: CIPROFLOXACIN/PMX 400MG/200ML 200 ML IV SCH (04:25)
[2018-12-27 04:45] LABS: BASOPHILS # (AUTO) 0.01 x10^3/uL (0-0.1); BASOPHILS % (AUTO) 0 % (0-1); EOSINOPHILS # (AUTO) 0.22 x10^3/uL (0-0.4); EOSINOPHILS % (AUTO) 2 % (1-7); LYMPHOCYTES # (AUTO) 1.52 x10^3/uL (1-3.4); LYMPHOCYTES % (AUTO) 16 % (22-44); MD NO; MEAN CORPUSCULAR HEMOGLOBIN 32.2 pg (27.0-34.8); MEAN CORPUSCULAR HGB CONC 33.4 g/dL (32.4-35.8); MEAN CORPUSCULAR VOLUME 96.3 fL (80-100); MEAN PLATELET VOLUME 6.8 fL (7.4-10.4); MONOCYTES # (AUTO) 0.54 x10^3/uL (0.2-0.8); MONOCYTES % (AUTO) 6 % (2-9); NEUTROPHILS # (AUTO) 7.02 x10^3/uL (1.8-6.8); NEUTROPHILS % (AUTO) 75 % (42-75); PLATELET COUNT 100 x10^3/uL (130-400); RED BLOOD COUNT 2.94 x10^6/uL (3.82-5.3); RED CELL DISTRIBUTION WIDTH 15.1 % (9.6-15.2)
[2018-12-27 04:56] LABS: CHLORIDE 112 mmol/L (98-107)
[2018-12-27 05:03] LABS: ANION GAP 7 mmol/L (5-15); CALCIUM 7.4 mg/dL (8.5-10.1); CREATININE 0.91 mg/dL (0.55-1.02)
[2018-12-27 06:43] VITALS: BP 135/62
[2018-12-27] MEDS: INSULIN LISPRO 100 UNITS/ML, PEN SQ-INSULIN SCH ×2 (07:00→11:51)
[2018-12-27] MEDS: SODIUM CHLORIDE FLUSH 10ML SYR IVF SCH (09:00)
[2018-12-27] MEDS: FAMOTIDINE 20 MG TABLET PO SCH (09:10)
[2018-12-27] MEDS: maalox/diphenh/lido/sucralfate 5 ML PO PRN (11:50)
[2018-12-27 12:58] VITALS: BP 136/74
== END 2018-12-27 16:05 | disposition home or self-care (01) | DRG 740 ==
LOC: UNDOADMIN 15:35 → ORIP 15:35 → 4NOR 12-20 15:21 → 3NW 12-20 20:13 → DCLOUNGE 12-27 15:52
PROVIDERS: ADMIT Specialist; ATTEND Specialist
PROC: 0UT20ZZ Resection of Bilateral Ovaries, Open Approach (ICD-10-PCS; 2018-12-20)
PROC: 0DBU0ZZ Excision of Omentum, Open Approach (ICD-10-PCS; 2018-12-20)
PROC: 0UT90ZZ Resection of Uterus, Open Approach (ICD-10-PCS; 2018-12-20)
PROC: 0T778DZ Dilation of Left Ureter with Intraluminal Device, Via Natural or Artificial Opening Endoscopic (ICD-10-PCS; 2018-12-20)
PROC: 0DBB0ZZ Excision of Ileum, Open Approach (ICD-10-PCS; 2018-12-20)
PROC: 30230R1 Transfusion of Nonautologous Platelets into Peripheral Vein, Open Approach (ICD-10-PCS; 2018-12-20)
PROC: 30230N1 Transfusion of Nonautologous Red Blood Cells into Peripheral Vein, Open Approach (ICD-10-PCS; 2018-12-20)
PROC: 30233K1 Transfusion of Nonautologous Frozen Plasma into Peripheral Vein, Percutaneous Approach (ICD-10-PCS; 2018-12-20)
PROC: 0UT70ZZ Resection of Bilateral Fallopian Tubes, Open Approach (ICD-10-PCS; principal; 2018-12-20 07:30)
PROC: 0T9B70Z Drainage of Bladder with Drainage Device, Via Natural or Artificial Opening (ICD-10-PCS; 2018-12-21)
DX: C54.1 Malignant neoplasm of endometrium (principal); N17.9 Acute kidney failure, unspecified; E46 Unspecified protein-calorie malnutrition; K56.7 Ileus, unspecified; N13.6 Pyonephrosis; E78.5 Hyperlipidemia, unspecified; K21.9 Gastro-esophageal reflux disease without esophagitis; N18.9 Chronic kidney disease, unspecified; I12.9 Hypertensive chronic kidney disease with stage 1 through stage 4 chronic kidney disease, or unspecified chronic kidney disease; E11.22 Type 2 diabetes mellitus with diabetic chronic kidney disease; E86.9 Volume depletion, unspecified; Z92.21 Personal history of antineoplastic chemotherapy; Z88.0 Allergy status to penicillin; Z80.3 Family history of malignant neoplasm of breast; Z68.29 Body mass index [BMI] 29.0-29.9, adult; D64.9 Anemia, unspecified
CPT/HCPCS: 36415; 71045; 74018; 80048; 80053; 81001; 82040; 82570; 82962; 83605; 85025; 85610; 85730; 86850; 86900; 86923; 87040; 87086; 88304; 88307; C1729; G0378; J0690; J0744; J1100; J1170; J2250; J2405; J2704; J2710; J3010; J3480; J3490; J7070; P9045; C1765; C1769; C2617; J1200; J1450; J1815; J2370; J7030; J7040; J7050; J7120; P9016; P9017; P9035

== ENCOUNTER → 2018-12-13 | Outpatient (CLI) | payer MEDICARE ==
[~2018-12-13] MED LIST changes: +MAGN400T7 PO; +OXYC-306 PO; +PROC10TA2 PO; +[UNRECOGNIZED DRUG - OTHER]
[2018-12-13 14:45] LABS: BASOPHILS # (AUTO) 0.03 x10^3/uL (0-0.1); BASOPHILS % (AUTO) 0 % (0-1); EOSINOPHILS # (AUTO) 0.36 x10^3/uL (0-0.4); EOSINOPHILS % (AUTO) 5 % (1-7); LYMPHOCYTES # (AUTO) 2.56 x10^3/uL (1-3.4); LYMPHOCYTES % (AUTO) 36 % (22-44); MD NO; MEAN CORPUSCULAR HEMOGLOBIN 34.4 pg (27.0-34.8); MEAN CORPUSCULAR HGB CONC 32.8 g/dL (32.4-35.8); MEAN CORPUSCULAR VOLUME 104.9 fL (80-100); MEAN PLATELET VOLUME 7.5 fL (7.4-10.4); MONOCYTES # (AUTO) 0.44 x10^3/uL (0.2-0.8); MONOCYTES % (AUTO) 6 % (2-9); NEUTROPHILS % (AUTO) 53 % (42-75); PLATELET COUNT 177 x10^3/uL (130-400); RED BLOOD COUNT 2.51 x10^6/uL (3.82-5.3); RED CELL DISTRIBUTION WIDTH 16.1 % (9.6-15.2)
[2018-12-13 14:58] LABS: ALANINE AMINOTRANSFERASE 30 U/L (12-78); ALBUMIN 3.6 g/dL (3.4-5.0); ANION GAP 8 mmol/L (5-15); CALCIUM 9.1 mg/dL (8.5-10.1); CHLORIDE 116 mmol/L (98-107); CREATININE 1.34 mg/dL (0.55-1.02)
[2018-12-13 15:00] LABS: ALKALINE PHOSPHATASE 91 U/L (45-117); BILIRUBIN,TOTAL 0.7 mg/dL (0.2-1.0); TOTAL PROTEIN 6.8 g/dL (6.4-8.2)
[2018-12-13 15:10] LABS: INTERNATIONAL NORMALIZED RATIO 0.94 (0.93-1.1); PROTHROMBIN TIME 9.9 Seconds (9.6-11.5)
== END | disposition home or self-care (01) ==
LOC: STAR 13:12
PROVIDERS: ATTEND Specialist
DX: Z01.818 Encounter for other preprocedural examination (principal); C54.1 Malignant neoplasm of endometrium
CPT/HCPCS: 36415; 71046; 80053; 85025; 85610; 85730; 93005

== ENCOUNTER 2019-02-04 12:39 | Outpatient (CLI) | payer MEDICARE ==
[~2019-02-04 12:39] MED LIST changes: +MIRT-34 PO; -MIRT15TA4 PO
[2019-02-23] MEDS ORDERED: LOPE2CAP PO (13:59)
[2019-02-23] MEDS ORDERED: AMPI500V3 PO (13:59)
[2019-05-02] MEDS ORDERED: ASCO10004 PO (08:55)
== END 2019-02-04 23:59 | disposition home or self-care (01) ==
LOC: CFH 12:39
PROVIDERS: ATTEND Specialist
DX: C78.89 Secondary malignant neoplasm of other digestive organs (principal); C56.9 Malignant neoplasm of unspecified ovary; K22.8 Other specified diseases of esophagus; R16.1 Splenomegaly, not elsewhere classified; R59.0 Localized enlarged lymph nodes; N13.30 Unspecified hydronephrosis; Z90.710 Acquired absence of both cervix and uterus
CPT/HCPCS: 74176

== ENCOUNTER 2019-02-21 12:02 | Observation (INO) | payer MEDICARE ==
[~2019-02-21] VITALS: Ht 157.5 cm; Wt 62.7 kg
[2019-02-23 14:46] VITALS: BP 131/65
== END 2019-02-23 18:26 | disposition home or self-care (01) ==
LOC: 3NW 13:15 → INTOOBSV 13:15
PROVIDERS: ADMIT Specialist; ATTEND Specialist
DX: C54.1 Malignant neoplasm of endometrium (principal); E86.0 Dehydration; E87.1 Hypo-osmolality and hyponatremia; E87.8 Other disorders of electrolyte and fluid balance, not elsewhere classified; R11.2 Nausea with vomiting, unspecified; E11.22 Type 2 diabetes mellitus with diabetic chronic kidney disease; N18.9 Chronic kidney disease, unspecified; K21.9 Gastro-esophageal reflux disease without esophagitis; E78.5 Hyperlipidemia, unspecified; Z90.710 Acquired absence of both cervix and uterus; Z43.2 Encounter for attention to ileostomy; Z88.0 Allergy status to penicillin; Z88.5 Allergy status to narcotic agent; Z88.6 Allergy status to analgesic agent
CPT/HCPCS: 36415; 70450; 80048; 80053; 81001; 82962; 83735; 85014; 85018; 85025; 86850; 86900; 86923; 87040; 87077; 87086; 87186; 87324; 96360; 96361; G0378; J3480; J7040; P9016; Q0164

== ENCOUNTER 2019-07-27 13:53 | Outpatient (CLI) | payer MEDICARE, OTHER ==
[~2019-07-27 13:53] MED LIST changes: +AMPI500V3 PO; +ASCO10004 PO; +LOPE2CAP PO; -MAGN400T7 PO; +MAGN400T9 PO; +OXYB5TAB10 PO; -OXYB5TAB7 PO; -RANI-448 PO; +RANI-460 PO
[2019-07-27] MEDS ORDERED: OMNIPAQUE 350 MG/ML, 100ML BOTTLE ONE (15:27)
[2019-09-09] MEDS ORDERED: SULF1TAB24 PO (10:29)
== END 2019-07-27 23:59 | disposition home or self-care (01) ==
LOC: CFH 13:53 → EDSTATUS 15:00 → CFH 23:59
PROVIDERS: ATTEND Registered Nurse Maternal Newborn
DX: C76.2 Malignant neoplasm of abdomen (principal); C56.9 Malignant neoplasm of unspecified ovary; K43.6 Other and unspecified ventral hernia with obstruction, without gangrene; K86.89 Other specified diseases of pancreas; N13.39 Other hydronephrosis; R59.9 Enlarged lymph nodes, unspecified
CPT/HCPCS: 71260; 74177; 82565; Q9967

== ENCOUNTER → 2019-08-03 | Outpatient (CLI) | payer MEDICARE ==
[~2019-08-03] MED LIST changes: +RANI-448 PO; -RANI-460 PO
== END | disposition home or self-care (01) ==
LOC: RAD 15:19
PROVIDERS: ATTEND Family Medicine
DX: Z01.818 Encounter for other preprocedural examination (principal); C56.9 Malignant neoplasm of unspecified ovary; E83.42 Hypomagnesemia; R07.9 Chest pain, unspecified
CPT/HCPCS: 71046; 93005

== ENCOUNTER 2019-08-08 08:44 | Day surgery (SDC) | payer MEDICARE ==
[~2019-08-08] VITALS: Ht 157.5 cm; Wt 64.9 kg
[~2019-08-08 08:44] MED LIST changes: +BUPIVACAINE/PF-EPI 0.25% 1:200K ONE; +HEPARIN 1,000 UNITS/ML, 10ML ONE; +HEPARIN 1,000 UNITS/ML, 30ML ONE; +PAPAVERINE 30 MG/ML, 2ML ONE; +PROTAMINE SULFATE 10 MG/ML, 5ML ONE
[2019-08-08] MEDS ORDERED: MIDAZOLAM 1 MG/ML, 2ML ONE (08:46)
[2019-08-08] MEDS ORDERED: FENTANYL PF 250 MCG/5ML ONE (08:46)
[2019-08-08] MEDS ORDERED: DEXAMETHASONE 4 MG/ML, 1ML ONE (08:48)
[2019-08-08 09:07] VITALS: BP 109/60
[2019-08-08] MEDS ORDERED: LACTATED RINGERS 1,000 ML IV ONE (09:09)
[2019-08-08] MEDS ORDERED: CEFOTETAN PMX 2GM/50ML 50 ML ONE (09:17)
[2019-08-08 09:28] LABS: INTERNATIONAL NORMALIZED RATIO 0.94 (0.93-1.1)
[2019-08-08] MEDS ORDERED: CEFOTETAN PMX 2GM/50ML 50 ML IV ONE (09:30)
[2019-08-08] MEDS ORDERED: PHENYLEPHRINE 10 MG/ML ONE (09:37)
[2019-08-08] MEDS ORDERED: ONDANSETRON 2MG/ML, 2ML ONE (09:37)
[2019-08-08] MEDS ORDERED: PROPOFOL 10 MG/ML, 20ML ONE (09:37)
[2019-08-08] MEDS ORDERED: SUCCINYLCHOLINE 20 MG/ML, 10ML ONE (09:37)
[2019-08-08] MEDS ORDERED: ROCURONIUM 10MG/ML,5ML ONE (09:37)
[2019-08-08] MEDS ORDERED: SUGAMMADEX 200 MG/2 ML IVPush ONE (09:37)
[2019-08-08] MEDS ORDERED: PROMETHAZINE 12.5 MG SUPP PR PRN (10:00)
[2019-08-08] MEDS ORDERED: ONDANSETRON 2MG/ML, 2ML IV PRN (10:00)
[2019-08-08] MEDS ORDERED: DIAZEPAM 5 MG/ML, 2ML IVPush PRN (10:00)
[2019-08-08] MEDS ORDERED: OXYcodone 5 MG/5 ML ORAL.SOL UDC PO PRN (10:00)
[2019-08-08] MEDS ORDERED: MIDAZOLAM 1 MG/ML, 2ML IV PRN (10:00)
[2019-08-08] MEDS ORDERED: HYDROmorphone 2 MG/ML, 1ML IVPush PRN (10:00)
[2019-08-08] MEDS ORDERED: hydrALAzine 20 MG/ML, 1ML IV PRN (10:00)
[2019-08-08] MEDS ORDERED: ONDANSETRON ODT 8 MG PO PRN (10:00)
[2019-08-08] MEDS ORDERED: PROMETHAZINE 25 MG/ML, 1ML IV PRN (10:00)
[2019-08-08] MEDS ORDERED: ALBUTEROL SULFATE 2.5 MG/3 ML NPPB PRN (10:00)
[2019-08-08] MEDS ORDERED: LABETALOL 5MG/ML, 20ML IV PRN (10:00)
[2019-08-08] MEDS ORDERED: FENTANYL PF 100 MCG/2ML IV PRN (10:00)
[2019-08-08] MEDS ORDERED: MEPERIDINE/PF 25MG/ML,1ML IVPush PRN (10:00)
[2019-08-08] MEDS ORDERED: EPHEDRINE 50 MG/ML, 1ML IVPush PRN (10:00)
[2019-08-08] MEDS ORDERED: hydrALAzine 20 MG/ML, 1ML ONE (12:14)
== END 2019-08-08 14:20 | disposition home or self-care (01) ==
LOC: OUT 08:44
PROVIDERS: ATTEND Obstetrics & Gynecology
DX: C56.9 Malignant neoplasm of unspecified ovary (principal); N13.5 Crossing vessel and stricture of ureter without hydronephrosis; D64.9 Anemia, unspecified; C78.89 Secondary malignant neoplasm of other digestive organs; E83.42 Hypomagnesemia; E11.22 Type 2 diabetes mellitus with diabetic chronic kidney disease; I12.9 Hypertensive chronic kidney disease with stage 1 through stage 4 chronic kidney disease, or unspecified chronic kidney disease; N18.9 Chronic kidney disease, unspecified; K21.9 Gastro-esophageal reflux disease without esophagitis; E78.5 Hyperlipidemia, unspecified; Z96.0 Presence of urogenital implants; Z79.01 Long term (current) use of anticoagulants; Z79.899 Other long term (current) drug therapy; Z79.84 Long term (current) use of oral hypoglycemic drugs; Z88.0 Allergy status to penicillin; Z88.8 Allergy status to other drugs, medicaments and biological substances
CPT/HCPCS: 36561; 52332; 71045; 74420; 77001; 82962; 85610; 85730; 86850; 86900; 86923; C1769; C1788; C2617; J0330; J0360; J1100; J1644; J2250; J2370; J2405; J2704; J3010; J3490; J7120; P9016; J2720; J2440

== ENCOUNTER → 2019-08-10 | Outpatient (CLI) | payer MEDICARE ==
[~2019-08-10] MED LIST changes: -BUPIVACAINE/PF-EPI 0.25% 1:200K ONE; -HEPARIN 1,000 UNITS/ML, 10ML ONE; -HEPARIN 1,000 UNITS/ML, 30ML ONE; -PAPAVERINE 30 MG/ML, 2ML ONE; -PROTAMINE SULFATE 10 MG/ML, 5ML ONE
== END | disposition home or self-care (01) ==
LOC: RAD 11:34
PROVIDERS: ATTEND Specialist
DX: C56.9 Malignant neoplasm of unspecified ovary (principal); Z79.899 Other long term (current) drug therapy
CPT/HCPCS: 78472; A9560; J1642